=== PATIENT | male | born 1990 | race Caucasian/White ===

== ENCOUNTER 2021-09-20 09:23 | Day surgery (SDC) | payer MEDICARE, BC ==
[2021-09-19 08:42] VITALS: BMI 30.9
[~2021-09-20 09:23] MED LIST: Acetaminophen 500 MG TAB PO PRN; Cyclopentolate 1% Opth Drop 2 ML BOT R EYE SCH; EPINEPHrine 0.3 MG in Ophthalmic Irrigation Solution 500 ML IRR SCH; Midazolam HCl 2 mg/2 ml Vial ONE; PROPOFOL 20 ML ONE; Phenylephrine 2.5% Ophth Soln 5 ML BOT R EYE SCH
[2021-09-20] MEDS ORDERED: Cyclopentolate 1% Opth Drop 2 ML BOT ONE (10:54)
[2021-09-20] MEDS ORDERED: Phenylephrine 2.5% Ophth Soln 5 ML BOT ONE (10:54)
[2021-09-20] MEDS ORDERED: Midazolam HCl 2 mg/2 ml Vial ONE (12:01)
[2021-09-20] MEDS ORDERED: CEFAZOLIN 1 GM VIAL ONE (12:15)
[2021-09-20] MEDS ORDERED: Triamcinolone 40 MG/ML VIAL ONE (12:15)
[2021-09-20] MEDS ORDERED: PROPOFOL 200 MG/20 ML VIAL ONE (12:15)
[2021-09-20] MEDS ORDERED: Lidocaine 1% PF 5 ML VIAL ONE (12:15)
[2021-09-20] MEDS ORDERED: Bupivacaine 0.75% 10 ML VIAL ONE (12:15)
[2021-09-20] MEDS ORDERED: EPINEPHrine 1 MG/ML AMP ONE (12:15)
[2021-09-20] MEDS ORDERED: Lidocaine 4% PF 5 ML AMP ONE (12:15)
== END 2021-09-20 15:10 | disposition home or self-care (01) ==
LOC: SDC 09:23
PROVIDERS: ATTEND Ophthalmology Retina Specialist
PROC: 08T43ZZ Resection of Right Vitreous, Percutaneous Approach (ICD-10-PCS; principal; 2021-09-20)
PROC: 08QE3ZZ Repair Right Retina, Percutaneous Approach (ICD-10-PCS; 2021-09-20)
DX: H33.41 Traction detachment of retina, right eye (principal); E78.5 Hyperlipidemia, unspecified; E03.9 Hypothyroidism, unspecified; E66.9 Obesity, unspecified; F17.200 Nicotine dependence, unspecified, uncomplicated; Z68.31 Body mass index [BMI] 31.0-31.9, adult; Z79.890 Hormone replacement therapy; Z79.899 Other long term (current) drug therapy
CPT/HCPCS: C1814; J0171; J0690; J2250; J2704; J3301; J3490

== ENCOUNTER 2021-12-29 14:55 | Outpatient (CLI) | payer MEDICARE, BC, MEDICAID | END 2021-12-29 14:56 | disposition home or self-care (01) | LOC: LABBT 14:55 | PROVIDERS: ATTEND Ophthalmology Retina Specialist | DX: H43.391 Other vitreous opacities, right eye (principal); Z20.822 Contact with and (suspected) exposure to COVID-19 | CPT/HCPCS: 87811 ==

== ENCOUNTER 2022-01-03 09:44 | Day surgery (SDC) | payer MEDICARE, BC, MEDICAID ==
[2021-12-29 16:52] VITALS: BMI 30.9
[~2022-01-03 09:44] MED LIST changes: -Acetaminophen 500 MG TAB PO PRN; +Cyclopentolate 1% Opth Drop 2 ML BOT ONE; -Cyclopentolate 1% Opth Drop 2 ML BOT R EYE SCH; -PROPOFOL 20 ML ONE; +Phenylephrine 2.5% Ophth Soln 5 ML BOT ONE; -Phenylephrine 2.5% Ophth Soln 5 ML BOT R EYE SCH; +fentaNYL Citrate/PF 100 MCG/2 ML SYRINGE ONE
[2022-01-03] MEDS ORDERED: CEFAZOLIN 1 GM VIAL ONE (10:24)
[2022-01-03] MEDS ORDERED: Triamcinolone 40 MG/ML VIAL ONE (10:24)
[2022-01-03] MEDS ORDERED: Bupivacaine 0.75% 10 ML VIAL ONE (10:24)
[2022-01-03] MEDS ORDERED: Lidocaine 1% PF 5 ML VIAL ONE (10:24)
[2022-01-03] MEDS ORDERED: Maxitrol 0.1% Opth Oint 3.5 GM TUBE ONE (10:24)
[2022-01-03] MEDS ORDERED: Lidocaine 4% PF 5 ML AMP ONE (10:24)
[2022-01-03] MEDS ORDERED: PROPOFOL 200 MG/20 ML VIAL ONE (10:24)
== END 2022-01-03 11:50 | disposition home or self-care (01) ==
LOC: SDC 09:44
PROVIDERS: ATTEND Ophthalmology Retina Specialist
PROC: 08T43ZZ Resection of Right Vitreous, Percutaneous Approach (ICD-10-PCS; principal; 2022-01-03)
DX: H43.391 Other vitreous opacities, right eye (principal); Z79.890 Hormone replacement therapy; Z79.899 Other long term (current) drug therapy
CPT/HCPCS: J0171; J0690; J2250; J2704; J3301; J3490